=== PATIENT | female | born 1960 | race Caucasian/White ===

== ENCOUNTER 2019-05-21 21:26 | Emergency (ER) | payer MEDICAID ==
[~2019-05-21] VITALS: Ht 167.6 cm; Wt 53.5 kg
[2019-05-21 21:32] VITALS: Ht 167.6 cm; Wt 53.5 kg
[2019-05-21 22:09] LABS: BASOPHIL % 0.8 % (0-2); PLATELET COUNT 376 x10^3mcL (130-400); RED CELL DISTRIBUTION WIDTH 14.5 % (11.5-14.5)
[2019-05-21 22:21] LABS: ALKALINE PHOSPHATASE 88 U/L (46-116); ALT/SGPT 75 U/L (14-59); AST/SGOT 74 U/L (15-37); BILIRUBIN TOTAL 0.35 mg/dL (0.20-1.00); CALCIUM 8.6 mg/dL (8.5-10.1); CARBON DIOXIDE 27.2 mmol/L (21-32); CHLORIDE SERUM 108 mmol/L (98-107); CREATININE SERUM 1.2 mg/dL (0.6-1.0); GFR1 49 mL/min; POTASSIUM SERUM 3.7 mmol/L (3.5-5.1); SODIUM SERUM 144 mmol/L (136-145); TOTAL PROTEIN, SERUM 6.7 g/dL (6.4-8.2)
[2019-05-21 22:23] LABS: ALBUMIN 2.8 g/dL (3.4-5.0)
[2019-05-21 22:38] LABS: GLUCOSE SERUM 113 mg/dL (74-106)
[2019-05-21 23:25] LABS: AMPHETAMINE QUAL UR NONE DETECTED (See below)
--- NOTE | 2019-05-22 07:35 | NUR ---
[facility] still working on finding placement for this pt. Will continue to f/u with facilities. Will contact with any updates on placement.
--- NOTE | 2019-05-22 08:55 | NUR ---
F/U with the following facilities: [facility]: s/w Talia, states no beds at this time, potential D/Cs later. [place]: s/w Latrice states no beds, not accepting referrals at this time. [facility]: s/w Kalyani, states open beds, pacekt faxed for review, will f/u [facility]: No answer, unable to leave message, will f/u. [facility]: state pt must be at least 60 y/o to be admitted. [facility]: Rang Continuously, no answer, multiple attempts. Will f/u. [facility]: s/w Harini, states no beds, they have pts in ER waiting on beds to open as well. Will f/u later. Will continue to contact facilites. Will contact with any updates on placement.
--- NOTE | 2019-05-22 18:44 | NUR ---
Received call from [facility]. Pt has been accepted. [facility] [address] [facility] [address] Unit[facility] 1 [facility] Room 124-A Accepting MD: Dr. Washburn Number for Report: [phone] Requests call for report to be made at or after 1900 ER Made aware.
[2019-05-22 20:23] VITALS: BP 151/89
== END 2019-05-22 20:23 ==
LOC: ED 21:26 → EDBEDREQ 23:23 → EDBEDREQSVC 05-22 02:13 → EDBEDREQDT 05-22 02:14 → EDBEDREQSVC 05-22 02:14 → EDBEDREQ 05-22 02:14 → EDBEDREQTM 05-22 02:14 → ED 05-22 20:23
PROVIDERS: Emergency Medicine
DX: R53.1 Weakness (principal); F32.9 Major depressive disorder, single episode, unspecified; F10.20 Alcohol dependence, uncomplicated; I10 Essential (primary) hypertension
CPT/HCPCS: G0480; J7030; Q0092